=== PATIENT | male | born 1965 | race Two or more races ===

== ENCOUNTER 2017-02-09 20:37 | Emergency (ER) | payer BC ==
[~2017-02-09] VITALS: Ht 160 cm; Wt 79.4 kg
[2017-02-09] MEDS ORDERED: methylPREDNISolone SOD SUCC 125 MG/2 ML VIAL IV ONE (20:45)
[2017-02-09] MEDS ORDERED: MORPHINE SULFATE 2 MG/1 ML DISP.SYRIN IV ONE (20:45)
[2017-02-09] MEDS ORDERED: ONDANSETRON 4 MG/2 ML VIAL IV ONE (20:45)
[2017-02-09] MEDS ORDERED: FAMOTIDINE. 20 MG/2 ML VIAL IV ONE ×2 (20:45→21:07)
[2017-02-09] MEDS ORDERED: EPINEPHRINE 1 MG/1 ML AMP SQ ONE (20:45)
[2017-02-09] MEDS ORDERED: diphenhydrAMINE 50 MG/1 ML VIAL IV ONE (20:45)
[2017-02-09] MEDS ORDERED: ALBUTEROL SULFATE 2.5 MG/3 ML NEBU ONE (20:58)
[2017-02-09] MEDS ORDERED: ALBUTEROL SULFATE 2.5 MG/3 ML NEBU NEB ONE (21:00)
--- NOTE | 2017-02-09 21:00 | NUR ---
PATIENT WALKED INTO ER C/O SEVERE PENILE PAIN THAT STARTED 1HR PRIOR TO ARRIVAL PATIENT STATES WENT TO [facility] THIS AM FOR ABSCESS ON PENILE AREA AND HAD A SHOT OF ANTIBIOTIC
[2017-02-09] MEDS ORDERED: ONDANSETRON 4 MG/2 ML VIAL ONE (21:01)
[2017-02-09] MEDS ORDERED: MORPHINE SULFATE 4 MG/1 ML DISP.SYRIN ONE (21:01)
[2017-02-09] MEDS ORDERED: EPINEPHRINE 1 MG/1 ML AMP ONE (21:01)
[2017-02-09] MEDS ORDERED: diphenhydrAMINE 50 MG/1 ML VIAL ONE (21:06)
[2017-02-09] MEDS ORDERED: methylPREDNISolone SOD SUCC 125 MG/2 ML VIAL ONE (21:06)
[2017-02-09 21:07] LABS: BASOPHILS # (AUTO) 0.1 K/uL (0.0-8.0); BASOPHILS % (AUTO) 0.8 % (0.0-2.0); EOSINOPHILS # (AUTO) 0.2 K/uL (0.0-0.7); EOSINOPHILS % (AUTO) 1.5 % (0.0-7.0); HEMATOCRIT 48.7 % (40-50); HEMOGLOBIN 16.3 G/DL (14.0-18.0); LYMPHOCYTES # (AUTO) 2.9 K/UL (0.8-4.8); LYMPHOCYTES % (AUTO) 18.5 % (20.5-51.5); MEAN CORPUSCULAR HEMOGLOBIN 29.8 UUG (27.0-31.0); MEAN CORPUSCULAR HGB CONC 34 g/dL (32.0-37.0); MEAN CORPUSCULAR VOLUME 88.7 FL (82.0-92.0); NEUTROPHILS # (AUTO) 11.6 K/UL (1.8-8.9); NEUTROPHILS % (AUTO) 73.2 % (38.5-71.5); PLATELET COUNT (AUTO) 255 K/UL (150-450); RED BLOOD CELL COUNT(AUTO) 5.49 MIL/UL (4.7-6.1); WHITE BLOOD COUNT (AUTO) 15.8 K/UL (4.0-11.2)
[2017-02-09 21:17] LABS: CREATININE 1.2 mg/dL (0.6-1.3); POTASSIUM 3.7 mmol/L (3.5-5.1)
[2017-02-09 21:23] LABS: BILIRUBIN,DIRECT 0.1 mg/dL (0.0-0.2); BILIRUBIN,TOTAL 0.3 mg/dL (0.2-1.0); TOTAL PROTEIN, SERUM 7.3 g/dL (6.4-8.2)
[2017-02-09] MEDS ORDERED: HYDROMORPHONE 1 MG/1 ML DISP.SYRIN IV ONE (21:30)
[2017-02-09] MEDS ORDERED: HYDROMORPHONE 2 MG/1 ML DISP.SYRIN ONE (21:37)
--- NOTE | 2017-02-09 22:30 | NUR ---
PATIENT SLEEPING WITH NO DISTRESS NOTED
--- NOTE | 2017-02-09 23:30 | NUR ---
PATIENT ABLE TO URIBNATE 500ML OF CLEAR URINE
--- NOTE | 2017-02-10 00:20 | NUR ---
IV removed. Catheter intact and site benign. Pressure and 4x4 gauze applied to site. No bleeding noted.
--- NOTE | 2017-02-10 00:27 | NUR ---
Patient discharged to home in stable conditon. Written and verbal after care instructions given. Patient verbalizes understanding of instructions. WITH FRIEND TAKING PATIENT HOME
[2017-02-10 00:29] VITALS: BP 150/85
== END 2017-02-10 00:30 | disposition home or self-care (01) ==
LOC: ER 20:37
DX: N45.4 Abscess of epididymis or testis (principal); Z88.1 Allergy status to other antibiotic agents
CPT/HCPCS: 36415; 70030-TC; 71010; 76870; 85025; 93005; A4663; J0171; J1170; J1200; J2270; J2405; J2930; J3490